=== PATIENT | male | born 1965 | race Caucasian/White ===

== ENCOUNTER 2017-11-10 23:06 | Emergency (ER) | payer BC, MEDICARE, OTHER ==
[2017-11-11] MEDS ORDERED: NORMAL SALINE 1000 ML 1,000 ML IV ONE ×2 (00:38)
[2017-11-11] MEDS ORDERED: MORPHINE SULFATE 10 MG/ML INJ IV ONE (00:38)
[2017-11-11] MEDS ORDERED: ONDANSETRON HCL INJ/PF 4 MG/2 ML SDV IV ONE (00:38)
[2017-11-11 01:04] LABS: ABSOLUTE BASOPHILS # (AUTO) 0.1 10^3/uL (0.0-0.2); ABSOLUTE EOSINOPHILS # (AUTO) 0.6 10^3/uL (0.0-0.6); ABSOLUTE LYMPHOCYTES (AUTO) 2.2 10^3/uL (0.5-4.7); ABSOLUTE MONOCYTES (AUTO) 0.7 10^3/uL (0.1-1.4); ABSOLUTE NEUT (AUTO) 5.9 10^3/uL (1.7-8.2); BASOPHILS % (AUTO) 0.8 % (0-2); EOSINOPHILS % (AUTO) 6.3 % (0-6); HEMATOCRIT 39.5 % (37.9-51.0); HEMOGLOBIN 13.6 g/dL (13.5-17.0); LYMPHOCYTES % (AUTO) 23.5 % (13-45); MEAN CORPUSCULAR HEMOGLOBIN 32.8 pg (27.0-33.4); MEAN CORPUSCULAR HGB CONC 34.5 g/dL (32.0-36.0); MEAN CORPUSCULAR VOLUME 95 fl (80-97); MONOCYTES % (AUTO) 7.4 % (3-13); PLATELET COUNT 282 10^3/uL (150-450); RED BLOOD COUNT 4.15 10^6/uL (4.35-5.55); RED CELL DISTRIBUTION WIDTH 13.9 % (11.5-14.0); TOTAL CELLS COUNTED % (AUTO) 100 %; WHITE BLOOD COUNT 9.5 10^3/uL (4.0-10.5)
[2017-11-11 01:20] LABS: ALANINE AMINOTRANSFERASE 68 U/L (21-72); ALBUMIN 4.2 g/dL (3.5-5.0); ALKALINE PHOSPHATASE 119 U/L (38-126); ANION GAP 13 (5-19); ASPARTATE AMINO TRANSFERASE 33 U/L (17-59); BILIRUBIN,DIRECT 0.2 mg/dL (0.0-0.4); BILIRUBIN,TOTAL 0.2 mg/dL (0.2-1.3); BLOOD UREA NITROGEN 13 mg/dL (7-20); CALCIUM 9.5 mg/dL (8.4-10.2); CARBON DIOXIDE 26 mmol/L (22-30); CHLORIDE 95 mmol/L (98-107); GLUCOSE 117 mg/dL (75-110); LIPASE 126.9 U/L (23-300); SODIUM 133.6 mmol/L (137-145); TOTAL PROTEIN 6.8 g/dL (6.3-8.2)
--- NOTE | 2017-11-11 02:15 | ER Document Report ---
ED General - General Chief Complaint: Abdominal Pain Stated Complaint: ABDOMINAL PAIN Time Seen by Provider: 11/11/17 00:32 TRAVEL OUTSIDE OF THE [place] IN LAST 30 DAYS: No - HPI Patient complains to provider of: Right upper quadrant abdominal pain right flank pain Notes: Patient coming in for evaluation of her upper quadrant abdominal pain right flank pain ongoing since later this evening. Patient states occurred after eating a salad. Patient states has been intermittent for some time worse tonight. Patient denies any trauma. 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 Patient states nausea no vomiting. No fevers chills no chest pain no trauma. Patient resting comfortably upon my evaluation - Related Data Allergies/Adverse Reactions: No Known Allergies Allergy (Verified 11/10/17 23:47) Past Medical History - Social History Smoking Status: Current Every Day Smoker Frequency of alcohol use: 3 BEERS THIS EVENING Family History: Reviewed & Not Pertinent Patient has suicidal ideation: No Patient has homicidal ideation: No - Past Medical History Cardiac Medical History: Reports: Hx Hypercholesterolemia, Hx Hypertension Neurological Medical History: Reports: Hx Cerebrovascular Accident - x2 Renal/ Medical History: Denies: Hx Peritoneal Dialysis GI Medical History: Reports: Hx Gastroesophageal Reflux Disease Past Surgical History: Reports: Hx Genitourinary Surgery - vasectomy - Immunizations Immunizations up to date: Yes Hx Diphtheria, Pertussis, Tetanus Vaccination: Yes Review of Systems - Review of Systems Constitutional: No symptoms reported EENT: No symptoms reported Cardiovascular: No symptoms reported Respiratory: No symptoms reported Gastrointestinal: Abdominal pain Genitourinary: No symptoms reported Male Genitourinary: No symptoms reported Musculoskeletal: No symptoms reported Skin: No symptoms reported Hematologic/Lymphatic: No symptoms reported Neurological/Psychological: No symptoms reported -: Yes All other systems reviewed and negative Physical Exam - Vital signs Vitals: Temp Pulse Resp BP Pulse Ox 97.6 F 71 18 118/76 94 11/10/17 23:56 11/10/17 23:56 11/10/17 23:56 11/10/17 23:56 11/10/17 23:56 Interpretation: Normal - General General appearance: Appears well, Alert - HEENT Head: Normocephalic, Atraumatic Eyes: Normal Pupils: PERRL - Respiratory Respiratory status: No respiratory distress Chest status: Nontender Breath sounds: Normal Chest palpation: Normal - Cardiovascular Rhythm: Regular Heart sounds: Normal auscultation Murmur: No - Abdominal Inspection: Normal Distension: No distension Bowel sounds: Normal Tenderness: Tender - Tenderness to palpation of the right lateral side of the abdomen no specific right upper quadrant tenderness no Anne sign. Patient's abdomen is obese Organomegaly: No organomegaly - Back Back: Normal, Nontender - Extremities General upper extremity: Normal inspection, Nontender, Normal color, Normal ROM , Normal temperature General lower extremity: Normal inspection, Nontender, Normal color, Normal ROM , Normal temperature, Normal weight bearing. No: Roseanne's sign - Neurological Neuro grossly intact: Yes Cognition: Normal Orientation: AAOx4 Jennifer Coma Scale Eye Opening: Spontaneous Jennifer Coma Scale Verbal: Oriented [place] Coma Scale Motor: Obeys Commands [place] Coma Scale Total: 15 Speech: Normal Motor strength normal: LUE, RUE, LLE, RLE Sensory: Normal - Psychological Associated symptoms: Normal affect, Normal mood - Skin Skin Temperature: Warm Skin Moisture: Dry Skin Color: Normal Course - Re-evaluation Re-evalutation: 11/11/17 05:13 The patient presents with abdominal pain without signs of peritonitis or other life-threatening or serious etiology. The patient appears stable for discharge and has been instructed to return immediately if the symptoms worsen in any way , or in 8-12hr if not improved for re-evaluation. The patient has been instructed to return if the symptoms worsen or change in any way. My review of the ultrasound pictures showed possible sludge patient has a history of this in the past. Etiology pain with eating more likely possible still related to gallbladder possible duodenitis. 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 - Vital Signs Vital signs: Temp Pulse Resp BP Pulse Ox 97.7 F 74 16 131/74 H 97 11/11/17 03:55 11/11/17 03:55 11/11/17 03:55 11/11/17 03:55 11/11/17 03:55 - Laboratory Result Diagrams: 11/11/17 00:52 11/11/17 00:52 Laboratory results interpreted by me: 11/11/17 11/11/17 11/11/17 00:52 00:52 01:57 RBC 4.15 L Eosinophils % 6.3 H Sodium 133.6 L Chloride 95 L Glucose 117 H Urine Blood MODERATE H Discharge - Discharge Clinical Impression: Abdominal pain, right lateral Condition: Good Disposition: HOME, SELF-CARE Instructions: Abdominal Pain ([facility]), Antinausea Medication ([facility]), Low-Fat Diet ( [facility]), Oral Narcotic Medication ([facility]) Additional Instructions: Your ultrasound today does not show any signs of gallbladder inflammation or acute changes requiring surgery/antibiotics. More likely your pain is due to your inflammation of the last part of stomach or due to your gallbladder. Please observe a low-fat diet take medication as prescribed follow-up with your primary care physician continue your home medications. Prescriptions: Ondansetron [Zofran Odt] 4 mg PO Q6 PRN #20 tab.rapdis PRN Reason: For Nausea/Vomiting Tramadol HCl [Ultram 50 mg Tablet] 50 mg PO ASDIR PRN #20 tablet PRN Reason: Forms: Return to Work
[2017-11-11 02:18] LABS: APPEARANCE,URINE CLEAR; BILIRUBIN,URINE NEGATIVE (NEGATIVE); COLOR,URINE STRAW; GLUCOSE, URINE NEGATIVE (NEGATIVE); KETONES,URINE NEGATIVE (NEGATIVE); LEUKOCYTE ESTERASE,URINE NEGATIVE (NEGATIVE); NITRITE,URINE NEGATIVE (NEGATIVE); PROTEIN,URINE NEGATIVE (NEGATIVE); URINE SPECIFIC GRAVITY 1.003; UROBILINOGEN,URINE NEGATIVE mg/dL (<2.0)
--- NOTE | 2017-11-11 02:51 | RADIOLOGY REPORT (SQ) ---
EXAM DESCRIPTION: U/S ABDOMEN LTD W/DOPPLER CLINICAL HISTORY: ruq right flank pain COMPARISON: 11/17/2012 TECHNIQUE: Real-time sonographic images of the right upper abdomen were obtained using a curved multihertz transducer. Technically difficult exam related to patient body habitus as reported by the blood bank laboratory technologist. FINDINGS: The pancreas, aorta, and IVC are not well identified due to patient's body habitus. The liver has normal contour and increased echogenicity. Hepatopedal flow in the portal vein. The common bile duct measures 0.5 cm. The gallbladder has a normal appearance. No gallstones identified. No wall thickening or pericholecystic fluid. The right kidney measures 12.0 cm in length. No hydronephrosis, solid renal mass, or shadowing calculi. IMPRESSION: 1. No definite gallstones identified. 2. Hepatic steatosis.
[2017-11-11] MEDS ORDERED: TRAMADOL HCL 50 MG TABLET PO ONE (03:16)
[2017-11-11] MEDS ORDERED: LANSOPRAZOLE 30 MG TAB.RAP.DR PO ONE (03:17)
[2017-11-11 03:56] VITALS: BP 131/74
--- NOTE | 2017-11-11 11:57 | EKG REPORT ---
SEVERITY:- NORMAL ECG - SINUS RHYTHM : Confirmed by: Sara Chun MD 11-Nov-2017 11:57:09
--- NOTE | 2017-11-14 18:15 | EKG REPORT ---
SEVERITY:- BORDERLINE ECG - SINUS RHYTHM NONSPECIFIC ST-T CHANGES ANTEROSEPTAL LEADS. : Confirmed by: Galen Dorsey MD 14-Nov-2017 18:14:56
== END 2017-11-11 03:56 | disposition home or self-care (01) ==
LOC: ER 23:06
DX: K21.9 Gastro-esophageal reflux disease without esophagitis (principal); Z79.899 Other long term (current) drug therapy; R10.9 Unspecified abdominal pain; R10.11 Right upper quadrant pain; F17.200 Nicotine dependence, unspecified, uncomplicated; I10 Essential (primary) hypertension
CPT/HCPCS: 93005; 99284; 96361; 96374; 96375; 36415; 80307; 83690; 85025; 80053; 81001; 76705; 93976; 93010; A9270 ×2; J2270; J2405; J7030

== ENCOUNTER → 2019-01-11 | Outpatient (CLI) | payer MEDICARE ==
[2019-01-11 11:39] LABS: ABSOLUTE EOSINOPHILS # (AUTO) 0.7 10^3/uL (0.0-0.6); ABSOLUTE LYMPHOCYTES (AUTO) 1.8 10^3/uL (0.5-4.7); ABSOLUTE MONOCYTES (AUTO) 0.6 10^3/uL (0.1-1.4); ABSOLUTE NEUT (AUTO) 5.8 10^3/uL (1.7-8.2); BASOPHILS % (AUTO) 0.5 % (0-2); EOSINOPHILS % (AUTO) 7.5 % (0-6); HEMATOCRIT 41.2 % (37.9-51.0); HEMOGLOBIN 14.4 g/dL (13.5-17.0); LYMPHOCYTES % (AUTO) 20.3 % (13-45); MEAN CORPUSCULAR HEMOGLOBIN 33.4 pg (27.0-33.4); MEAN CORPUSCULAR HGB CONC 34.9 g/dL (32.0-36.0); MEAN CORPUSCULAR VOLUME 96 fl (80-97); PLATELET COUNT 286 10^3/uL (150-450); RED BLOOD COUNT 4.31 10^6/uL (4.35-5.55); RED CELL DISTRIBUTION WIDTH 14.1 % (11.5-14.0); SEGMENTED NEUTROPHILS % (AUTO) 64.7 % (42-78); TOTAL CELLS COUNTED % (AUTO) 100 %; WHITE BLOOD COUNT 8.9 10^3/uL (4.0-10.5)
[2019-01-11 11:41] LABS: ALANINE AMINOTRANSFERASE 72 U/L (21-72); ALBUMIN 4.3 g/dL (3.5-5.0); ALKALINE PHOSPHATASE 108 U/L (38-126); ANION GAP 9 (5-19); ASPARTATE AMINO TRANSFERASE 60 U/L (17-59); BLOOD UREA NITROGEN 14 mg/dL (7-20); CALCIUM 10.1 mg/dL (8.4-10.2); CARBON DIOXIDE 26 mmol/L (22-30); CHLORIDE 99 mmol/L (98-107); GLUCOSE 113 mg/dL (75-110); POTASSIUM 4.6 mmol/L (3.6-5.0); SODIUM 134.4 mmol/L (137-145)
[2019-01-11 11:42] LABS: BILIRUBIN,DIRECT 0.3 mg/dL (0.0-0.4); BILIRUBIN,TOTAL 0.4 mg/dL (0.2-1.3); CHOLESTEROL 179.08 mg/dL (0-200); TOTAL PROTEIN 7.6 g/dL (6.3-8.2); TRIGLYCERIDES 139 mg/dL (<150)
[2019-01-11 11:53] LABS: DIRECT LDL 117 mg/dL (<100)
[2019-01-13 03:36] LABS: CREATININE URINE 46.8 mg/dL (Not Estab.); MICROALBUMIN URINE 3.2 ug/mL (Not Estab.)
== END ==
LOC: OD 10:03
PROVIDERS: ATTEND Family Medicine Geriatric Medicine
DX: E11.8 Type 2 diabetes mellitus with unspecified complications (principal); E78.5 Hyperlipidemia, unspecified; I10 Essential (primary) hypertension
CPT/HCPCS: 36415; 80053; 80061; 82043; 82570; 83036; 84443; 85025

== ENCOUNTER → 2019-08-22 | Outpatient (CLI) | payer MEDICARE ==
[~2019-08-22] MED LIST: ALBUTEROL SULFATE 0.083% NEB 2.5 MG/3 ML AMPUL NEB ONE
--- NOTE | 2019-08-27 15:40 | Pulmonary Function Test ---
Pulmonary Function Test Date of Procedure:: 08/22/19 INDICATION:: Dyspnea Referring Provider: Die Casting Supervisor: Shilpa Bedoya SUBGRADE TESTER - Report Spirometry: Spirometry: pre-FVC: 3.07 L 80% post-FVC: 3.27 L 86% pre-FEV:1 2.21 L 71 % post-FEV1: 2.44 L 79% pre-FEV1/FVC %: 72 post-FEV1/FVC%: 75 predicted: 82 [id number]%: 1.50 L 46% [id number]%: 1.86 L 57% Lung Volume: Total lung capacity: 5.20 L 90% Vital capacity: 3.07 L 80% Inspiratory capacity: 2.42 L FRC N2: 2.79 L 110% ERV: 0.18 L RV: 2.13 L 108% RV/TLC %:: 41 predicted 35 Diffusion Capactity: DLCO: 18.8 66% DLCO/VA: 4.53 111% Impression: Mild obstructive ventilatory defect with good response to bronchodilator therapy. No restrictive ventilatory defect. No hyperinflation or air trapping. Mild decrease in diffusion capacity.
== END ==
LOC: RT 10:25
PROVIDERS: ATTEND Family Medicine Geriatric Medicine
DX: R06.2 Wheezing (principal); I69.354 Hemiplegia and hemiparesis following cerebral infarction affecting left non-dominant side; E11.42 Type 2 diabetes mellitus with diabetic polyneuropathy; I10 Essential (primary) hypertension
CPT/HCPCS: 94729; 94727; 94060; 94761; A9270

== ENCOUNTER → 2019-12-18 | Outpatient (CLI) | payer MEDICARE ==
[2019-12-18 14:14] LABS: ABSOLUTE BASOPHILS # (AUTO) 0.1 10^3/uL (0.0-0.2); ABSOLUTE EOSINOPHILS # (AUTO) 0.6 10^3/uL (0.0-0.6); ABSOLUTE LYMPHOCYTES (AUTO) 2.1 10^3/uL (0.5-4.7); ABSOLUTE MONOCYTES (AUTO) 0.9 10^3/uL (0.1-1.4); ABSOLUTE NEUT (AUTO) 5.4 10^3/uL (1.7-8.2); BASOPHILS % (AUTO) 0.7 % (0-2); EOSINOPHILS % (AUTO) 7.1 % (0-6); HEMATOCRIT 40.7 % (37.9-51.0); HEMOGLOBIN 14.4 g/dL (13.5-17.0); LYMPHOCYTES % (AUTO) 23.1 % (13-45); MEAN CORPUSCULAR HEMOGLOBIN 33.6 pg (27.0-33.4); MEAN CORPUSCULAR HGB CONC 35.5 g/dL (32.0-36.0); MEAN CORPUSCULAR VOLUME 95 fl (80-97); MONOCYTES % (AUTO) 9.7 % (3-13); PLATELET COUNT 291 10^3/uL (150-450); RED BLOOD COUNT 4.29 10^6/uL (4.35-5.55); RED CELL DISTRIBUTION WIDTH 14.1 % (11.5-14.0); SEGMENTED NEUTROPHILS % (AUTO) 59.4 % (42-78); TOTAL CELLS COUNTED % (AUTO) 100 %
[2019-12-18 14:37] LABS: ALBUMIN 4.2 g/dL (3.5-5.0); ALKALINE PHOSPHATASE 122 U/L (38-126); ANION GAP 8 (5-19); ASPARTATE AMINO TRANSFERASE 79 U/L (17-59); BILIRUBIN,DIRECT 0.1 mg/dL (0.0-0.4); BILIRUBIN,TOTAL 0.5 mg/dL (0.2-1.3); BLOOD UREA NITROGEN 16 mg/dL (7-20); CALCIUM 9.7 mg/dL (8.4-10.2); CARBON DIOXIDE 34 mmol/L (22-30); CHLORIDE 93 mmol/L (98-107); CHOLESTEROL 193.02 mg/dL (0-200); GLUCOSE 91 mg/dL (75-110); POTASSIUM 4.6 mmol/L (3.6-5.0); TOTAL PROTEIN 7.7 g/dL (6.3-8.2); TRIGLYCERIDES 166 mg/dL (<150)
[2019-12-18 14:48] LABS: DIRECT LDL 143 mg/dL (<100)
[2019-12-18 14:53] LABS: VLDL CHOLESTEROL 33.2 mg/dL (10-31)
[2019-12-19 11:37] LABS: MICROALBUMIN URINE 10.1 ug/mL (Not Estab.)
== END ==
LOC: OD 12:49
PROVIDERS: ATTEND Family Medicine Geriatric Medicine
DX: I10 Essential (primary) hypertension (principal); E11.42 Type 2 diabetes mellitus with diabetic polyneuropathy; E78.5 Hyperlipidemia, unspecified; E66.01 Morbid (severe) obesity due to excess calories; J44.9 Chronic obstructive pulmonary disease, unspecified; Z79.899 Other long term (current) drug therapy
CPT/HCPCS: 36415; 80053; 80061; 82043; 82570; 83036; 84443; 85025

== ENCOUNTER → 2020-01-10 | Outpatient (CLI) | payer MEDICARE | LOC: OD 11:14 | PROVIDERS: ATTEND Family Medicine Geriatric Medicine | DX: R79.89 Other specified abnormal findings of blood chemistry (principal) | CPT/HCPCS: 36415; 84443 ==